=== PATIENT | male | born 1995 | race Caucasian/White ===

== ENCOUNTER 2019-07-31 19:05 | Emergency (ER) | payer SELFPAY ==
[~2019-07-31] VITALS: Ht 162.6 cm; Wt 72.6 kg
[2019-07-31 19:50] VITALS: BP 137/74
--- NOTE | 2019-07-31 19:50 | NUR ---
PT AMBULATED TO LOBBY.
[2019-07-31] MEDS ORDERED: IBUPROFEN 600 MG TAB PO ONE (20:00)
--- NOTE | 2019-07-31 20:59 | NUR ---
AMBULATES TO CHAIR B WITH UPRIGHT, STEADY GAIT. GIRLFRIEND ACCOMPANIED.
--- NOTE | 2019-07-31 21:20 | NUR ---
RETURNED FROM XRAY VIA .
--- NOTE | 2019-07-31 21:24 | NUR ---
24 Y/O MALE. C/O PRODUCTIVE DRY COUGH, RUNNY NOSE AND FEVER. COUHGING UP YELLOW PHLEGM. PT AWAKE ALERT, CALM SITTING UP IN CHAIR NEXT TO GIRLFRIEND. SKIN WARM AND DRY. RESPIRATIONS EVEN AND UNLABORED. LUNG SOUNDS CTA. NO PREVIOUS MEDICAL HISTORY. ALLERGIES: NKA
[2019-07-31 21:43] VITALS: BP 137/74
--- NOTE | 2019-07-31 21:43 | NUR ---
Patient discharged with v/s stable. Written and verbal after care instructions given and explained. Patient alert, oriented and verbalized understanding of instructions. Ambulatory with steady gait. Accompanied by girlfriend. All questions addressed prior to discharge. ID band removed. Patient advised to follow up with PMD. Rx of GUAIATUSSIN AND TAMIFLU given. Patient educated on indication of medication including possible reaction and side effects. Opportunity to ask questions provided and answered.
== END 2019-07-31 21:43 | disposition home or self-care (01) ==
LOC: MED 19:05
DX: J10.1 Influenza due to other identified influenza virus with other respiratory manifestations (principal)
CPT/HCPCS: 71045; 87804; 99284

== ENCOUNTER 2019-12-02 13:22 | Emergency (ER) | payer MEDICAID, SELFPAY ==
[~2019-12-02] VITALS: Ht 162.6 cm; Wt 72.6 kg
[2019-12-02 13:25] VITALS: BP 120/77
--- NOTE | 2019-12-02 13:25 | NUR ---
24/M presents to ED, c/o fever and diarrhea x3 days. Denies cough/congestion, but observed occasional cough noted. Denies CP or SOB. Pt awake and alert, skin normal color warm and dry, rr even and unlabored. Lung sounds clear BL. Abd soft flat nontender. Denies med hx or rx.
--- NOTE | 2019-12-02 14:44 | NUR ---
COVID-19 SWAB COLLECTED
--- NOTE | 2019-12-02 14:46 | NUR ---
Patient discharged with v/s stable. Written and verbal after care instructions given and explained. Patient alert, oriented and verbalized understanding of instructions. Ambulatory with steady gait. All questions addressed prior to discharge. ID band removed. Patient advised to follow up with PMD. Rx of AZITHROMYCIN given. Patient educated on indication of medication including possible reaction and side effects. Opportunity to ask questions provided and answered.
[2019-12-02 14:47] VITALS: BP 120/77
--- NOTE | 2019-12-03 18:30 | NUR ---
RECEIVED POSITIVE COVID RESULT FROM LAB
== END 2019-12-02 14:46 | disposition home or self-care (01) ==
LOC: EEVIPCON 13:22 → MED 13:22
DX: J98.9 Respiratory disorder, unspecified (principal); Z20.828 Contact with and (suspected) exposure to other viral communicable diseases
CPT/HCPCS: 71045; 99284; Q0092; U0003; 99283

== ENCOUNTER 2021-03-23 13:27 | Emergency (ER) | payer MEDICAID ==
[~2021-03-23] VITALS: Ht 162.6 cm; Wt 82.6 kg
[2021-03-23 13:43] VITALS: BP 136/64
[2021-03-23] MEDS ORDERED: LORA1T1237 PO (14:22)
[2021-03-23] MEDS ORDERED: FLONAS NS (14:22)
--- NOTE | 2021-03-23 14:32 | NUR ---
no nursing interventions given
--- NOTE | 2021-03-23 14:33 | NUR ---
Patient discharged with v/s stable. Written and verbal after care instructions given and explained. Patient alert, oriented and verbalized understanding of instructions. Ambulatory with steady gait. All questions addressed prior to discharge. ID band removed. Patient advised to follow up with PMD. Rx of flonsae and claritin given. Patient educated on indication of medication including possible reaction and side effects. Opportunity to ask questions provided and answered.
[2021-03-23 14:34] VITALS: BP 136/64
== END 2021-03-23 14:33 | disposition home or self-care (01) ==
LOC: MED 13:27
DX: J30.9 Allergic rhinitis, unspecified (principal); I10 Essential (primary) hypertension; Z79.899 Other long term (current) drug therapy
CPT/HCPCS: 99283

== ENCOUNTER 2022-04-24 13:31 | Emergency (ER) | payer MEDICAID ==
[~2022-04-24] VITALS: Ht 167.6 cm; Wt 65.8 kg
[~2022-04-24 13:31] MED LIST: FLONAS NS; LORA1T1237 PO
[2022-04-24 13:46] VITALS: BP 135/94
[2022-04-24 16:04] VITALS: BP 115/70
--- NOTE | 2022-04-24 16:04 | NUR ---
Patient discharged with v/s stable. Written and verbal after care instructions given and explained. Patient verbalized understanding. Ambulatory with steady gait. All questions addressed prior to discharge. Advised to follow up with PMD.
== END 2022-04-24 16:04 | disposition home or self-care (01) ==
LOC: MED 13:31
DX: H57.89 Other specified disorders of eye and adnexa (principal); H10.89 Other conjunctivitis; Z79.899 Other long term (current) drug therapy
CPT/HCPCS: 99281

== ENCOUNTER 2023-08-18 17:20 | Emergency (ER) | payer MEDICAID ==
[~2023-08-18] VITALS: Ht 162.6 cm; Wt 74.8 kg
[2023-08-18 17:25] VITALS: BP 112/91; PULSE 98; RESP 20; TEMP 97.2; O2SAT 98
[2023-08-18] MEDS: fentaNYL citrate 0.05 MG/ML VIAL IVP ONE ×2 (18:12→19:55)
[2023-08-18] MEDS: BACITRACIN OINT 500 UNITS/GM PKT TP ONE (18:31)
[2023-08-18] MEDS: LIDOCAINE 2% 1000 MG/50 ML VIAL INJ ONE (18:32)
[2023-08-18] MEDS ORDERED: ceFAZolin 1,000 MG VIAL ONE (18:53)
[2023-08-18] MEDS ORDERED: fentaNYL citrate 0.05 MG/ML VIAL ONE (19:46)
[2023-08-18] MEDS ORDERED: HYDR-5191 PO (20:21)
[2023-08-18] MEDS ORDERED: IBUP-2218 PO (20:22)
[2023-08-18] MEDS ORDERED: BACI-418 TP (20:22)
[2023-08-18] MEDS ORDERED: CEPH-588 PO (20:22)
[2023-08-18 20:40] VITALS: BP 125/82; PULSE 88; RESP 19; TEMP 98; O2SAT 97
== END 2023-08-18 20:40 | disposition home or self-care (01) ==
LOC: MED 17:20
DX: S68.110A Complete traumatic metacarpophalangeal amputation of right index finger, initial encounter (principal); Z79.899 Other long term (current) drug therapy; W31.89XA Contact with other specified machinery, initial encounter; Y93.89 Activity, other specified; Y92.89 Other specified places as the place of occurrence of the external cause; Y99.8 Other external cause status
CPT/HCPCS: 12042; 73140; 90471; 90715; 96365; 96375; 96376; 99284; J0690; J2001; J3010

== ENCOUNTER 2023-08-20 14:26 | Emergency (ER) | payer MEDICAID ==
[~2023-08-20] VITALS: Ht 162.6 cm; Wt 74.8 kg
[~2023-08-20 14:26] MED LIST changes: +BACI-418 TP; +CEPH-588 PO; +HYDR-5191 PO; +IBUP-2218 PO
[2023-08-20 15:29] VITALS: BP 131/86; PULSE 82; RESP 18; TEMP 98.2; O2SAT 97
== END 2023-08-20 16:43 | disposition home or self-care (01) ==
LOC: MED 14:26
DX: S68.110D Complete traumatic metacarpophalangeal amputation of right index finger, subsequent encounter (principal); Z48.01 Encounter for change or removal of surgical wound dressing; Z79.899 Other long term (current) drug therapy; X58.XXXD Exposure to other specified factors, subsequent encounter
CPT/HCPCS: 99281

== ENCOUNTER 2023-08-22 17:50 | Emergency (ER) | payer MEDICAID ==
[~2023-08-22] VITALS: Ht 162.6 cm; Wt 74.8 kg
[2023-08-22 17:56] VITALS: BP 130/77; PULSE 84; RESP 18; TEMP 98.6; O2SAT 98
[2023-08-22] MEDS ORDERED: ACET-8905 PO (18:34)
== END 2023-08-22 19:01 | disposition home or self-care (01) ==
LOC: MED 17:50
DX: S68.110A Complete traumatic metacarpophalangeal amputation of right index finger, initial encounter (principal); Z79.899 Other long term (current) drug therapy; X58.XXXA Exposure to other specified factors, initial encounter; Y93.89 Activity, other specified; Y92.89 Other specified places as the place of occurrence of the external cause; Y99.8 Other external cause status
CPT/HCPCS: 99283